=== PATIENT | male | born 1955 | race Two or more races ===

== ENCOUNTER 2022-03-18 10:39 | Day surgery (SDC) | payer MEDICARE, MEDICAID ==
[2022-03-16 12:43] LABS: Basophils # (auto) 0.1 10 ^3/uL (0-0.2); Eosinophils # (auto) 0.2 10 ^3/uL (0-0.8); Hematocrit 42.6 % (41.0-53.0); Lymphocytes # (auto) 1.6 10 ^3/uL (0.4-5.4); Lymphocytes % (auto) 26.2 % (10.0-50.0); Mean Corpuscular Hgb Conc. 32.9 g/dL (32.0-36.0); Mean Corpuscular Volume 91.4 fL (80.0-100.0); Monocytes # (auto) 0.4 10 ^3/uL (0-1.3); Monocytes % (auto) 6.5 % (0.0-12.0); Neutrophils # (auto) 3.9 10 ^3/uL (1.6-8.6); Neutrophils % (auto) 63.3 % (37.0-80.0); Red Blood Cells 4.66 10^6/uL (4.5-5.90); Red Cell Distribution Width 12.9 % (11.8-14.3); White Blood Cell 6.2 10^3/uL (4.4-10.8)
[2022-03-16 13:10] LABS: Potassium 4.3 mmol/L (3.5-5.1)
[2022-03-16 13:18] LABS: Albumin 4.1 g/dL (3.4-5.0); BUN/Creatinine Ratio 16.2; Bilirubin, Total 0.6 mg/dL (0.2-1.0); Calcium 9.1 mg/dL (8.5-10.1); Total Protein 7.5 g/dL (6.4-8.2)
[2022-03-16 13:36] LABS: INR 0.96 (0.9-1.15); Partial Thromboplastin Time 27.8 sec (24.6-33.4)
[2022-03-16 13:52] LABS: Urine Bacteria NONE SEEN /hpf (None Seen); Urine Blood Negative /uL (Negative); Urine Specific Gravity 1.022 (1.001-1.035); Urine WBC <1 /hpf (0 - 3)
[~2022-03-18] VITALS: Ht 177.8 cm; Wt 104.3 kg
[~2022-03-18 10:39] MED LIST: ATOR20TA PO; CHOL20007 OR; DICL50TA4 PO; FINA5TAB4 PO; TAMS0.4C36 PO
[2022-03-18] MEDS ORDERED: fentaNYL CITRATE 100 MCG/2 ML VL IV ONE (10:40)
[2022-03-18] MEDS ORDERED: ROCURONIUM 10MG/ML 10ML VIAL IV ONE (10:40)
[2022-03-18] MEDS ORDERED: NEOSTIGMINE 1 MG/ML INJ (10mg/10ML VIAL) IV ONE (10:40)
[2022-03-18] MEDS ORDERED: PROPOFOL 10 MG/ML 20 ML IV ONE (10:40)
[2022-03-18] MEDS ORDERED: fentaNYL CITRATE 100 MCG/2 ML VL ONE (15:54)
[2022-03-18] MEDS ORDERED: MIDAZOLAM HCL 2MG/2ML 2ml VIAL (1mg/ml) ONE (15:56)
[2022-03-18] MEDS ORDERED: GLYCOPYRROLATE 0.2 MG/ML 1ML VIAL ONE ×2 (16:43→16:51)
[2022-03-18] MEDS ORDERED: NEOSTIGMINE 1 MG/ML INJ (10mg/10ML VIAL) ONE (16:51)
[2022-03-18 17:36] VITALS: BP 156/80
== END 2022-03-18 18:04 | disposition home or self-care (01) ==
LOC: SUR 10:39
PROVIDERS: ATTEND Urology
DX: N40.1 Benign prostatic hyperplasia with lower urinary tract symptoms (principal); M19.90 Unspecified osteoarthritis, unspecified site; Z20.822 Contact with and (suspected) exposure to COVID-19
CPT/HCPCS: 36415; 52649; 80053; 81001; 85025; 85610; 85730; 87086; J2250; J2704; J3010; U0003